=== PATIENT | male | born 1950 | race Caucasian/White ===

== ENCOUNTER 2019-03-02 11:41 | Outpatient (CLI) | payer MEDICARE, OTHER ==
--- NOTE | 2019-03-02 18:00 | RAD ---
RIGHT ELBOW TWO VIEWS: 03/02/2019 FINDINGS: No fracture or joint effusion is seen. There is a little roughness of the lateral humeral condyle salomón t could be due to prior tendinitis. IMPRESSION: No acute findings. POS: HOME
== END 2019-03-02 11:42 | disposition home or self-care (01) ==
LOC: BURRAD 11:41
PROVIDERS: ATTEND Nurse Practitioner Family
DX: M25.521 Pain in right elbow (principal); R22.31 Localized swelling, mass and lump, right upper limb